=== PATIENT | female | born 1995 | race Two or more races ===

== ENCOUNTER 2021-07-08 05:15 | Inpatient (IN) | payer OTHER ==
[~2021-07-08] VITALS: Ht 162.6 cm; Wt 2.7 kg
[2021-07-08] MEDS ORDERED: PRENATAL TABLE1 EAC1 PO (05:50)
[2021-07-08] MEDS ORDERED: IRON 100 PLUS1 EACH PO (05:50)
== END 2021-07-11 12:17 | disposition home or self-care (01) | DRG 787 ==
LOC: EDBD 05:15 → OB/GYN 05:15 → LDR 05:15 → OB/GYN 15:52
PROVIDERS: ADMIT Obstetrics & Gynecology; ATTEND Obstetrics & Gynecology
PROC: 10907ZC Drainage of Amniotic Fluid, Therapeutic from Products of Conception, Via Natural or Artificial Opening (ICD-10-PCS; 2021-07-08)
PROC: 3E033VJ Introduction of Other Hormone into Peripheral Vein, Percutaneous Approach (ICD-10-PCS; 2021-07-08)
PROC: 4A1HXFZ Monitoring of Products of Conception, Cardiac Rhythm, External Approach (ICD-10-PCS; 2021-07-08)
PROC: 10D00Z1 Extraction of Products of Conception, Low, Open Approach (ICD-10-PCS; principal; 2021-07-08 13:00)
DX: O62.1 Secondary uterine inertia (principal); O98.32 Other infections with a predominantly sexual mode of transmission complicating childbirth; O65.8 Obstructed labor due to other maternal pelvic abnormalities; O61.0 Failed medical induction of labor; O48.0 Post-term pregnancy; A63.0 Anogenital (venereal) warts; Z37.0 Single live birth; Z3A.40 40 weeks gestation of pregnancy